=== PATIENT | male | born 1975 | race Caucasian/White ===

== ENCOUNTER 2018-02-03 19:11 | Emergency (ER) | payer BC, OTHER ==
[~2018-02-03] VITALS: Ht 185.4 cm; Wt 86.2 kg
[2018-02-03] MEDS ORDERED: COQ-10100 MG PO (19:18)
[2018-02-03] MEDS ORDERED: CRESTOR40 MG PO (19:18)
[2018-02-03] MEDS ORDERED: VITAMIN D2000 UNIT PO (19:19)
[2018-02-03] MEDS ORDERED: ASPIR 8181 MG (19:19)
[2018-02-03] MEDS ORDERED: BUTALB-APAP-CA1 EACH PO (20:23)
[2018-02-03 20:45] VITALS: BP 112/65
== END 2018-02-03 20:47 | disposition home or self-care (01) ==
LOC: ER 19:11
DX: G44.209 Tension-type headache, unspecified, not intractable (principal); Z88.0 Allergy status to penicillin